=== PATIENT | male | born 1990 | race African-American/Black ===

== ENCOUNTER 2024-08-11 17:51 | Emergency (ER) | payer SELFPAY ==
[~2024-08-11] VITALS: Ht 175.3 cm; Wt 111.0 kg
[2024-08-11] MEDS ORDERED: AMOX/K CLAV875 M1 PO (18:33)
[2024-08-11] MEDS ORDERED: PERIDEX0.12 % MT (18:33)
[2024-08-11] MEDS ORDERED: IBUPROFEN600 MG PO (18:33)
[2024-08-11] MEDS ORDERED: TRAMADOL HYDROC50 M1 PO (18:33)
[2024-08-11 18:38] VITALS: BP 128/74
== END 2024-08-11 19:02 | disposition home or self-care (01) | DRG 159 ==
LOC: ED 17:51
DX: K02.9 Dental caries, unspecified (principal); K04.7 Periapical abscess without sinus; S02.5XXA Fracture of tooth (traumatic), initial encounter for closed fracture; X58.XXXA Exposure to other specified factors, initial encounter